=== PATIENT | female | born 1960 | race Caucasian/White ===

== ENCOUNTER 2024-03-12 12:41 | Outpatient (CLI) | payer OTHER, SELFPAY ==
--- NOTE | 2024-03-12 12:45 | ECG_ITS ---
Test Date: 2024-03-12 13:12:03 Measurements Intervals [place] Rate: 62 P: 5 AK: 146 QRS: -14 QRSD: 94 T: 13 QT: 395 QTc: 401 Interpretive Statements SINUS RHYTHM DELAYED PRECORDIAL R/S TRANSITION BASELINE ARTIFACT- I, II, III, AVR, AVL, AVF, V1-V6 BORDERLINE ECG No previous ECG available for comparison Electronically Signed On 03-12-2024 13:48:29 SENIOR NUCLEAR MEDICINE TECHNOLOGIST by Garrett Rios D.O.
== END 2024-03-12 12:42 | disposition home or self-care (01) ==
PROVIDERS: PCP Nurse Practitioner Family; Visit Provider Orthopaedic Surgery
DX: I10 Essential (primary) hypertension (principal); Z01.818 Encounter for other preprocedural examination; R94.31 Abnormal electrocardiogram [ECG] [EKG]
CPT/HCPCS: 93005

== ENCOUNTER 2024-03-18 00:56 | Day surgery (SDC) | payer OTHER, SELFPAY ==
[2024-03-11 10:03] VITALS: BMI 31.6
--- NOTE | 2024-03-11 10:15 | PC.NURSE ---
Report to the Outpatient Waiting Room, entrance under the green pavilion located off [facility], at time _0600_ on date _[id number]_. Planned Procedure Time: _0730_.? Time changes happen often and if your time is changed the preop area will call you the afternoon before. - You and your visitor will be asked to self-screen and do not enter if you have any COVID symptoms. Please call surgeon if you need to reschedule. - A mask is optional within the hospital at this time. Patients may have clear liquids (water, carbonated beverages, clear teas, apple juice) until 3 hours prior to surgery with a maximum of 20 ounces. - No food from midnight until time of surgery and no smoking Take only the following medications with a SIP of water on the morning of surgery: ____Azelastinen, Propanolol and Primidone DO NOT STOP ANY OF YOUR OTHER PRESCRIPTION MEDICATIONS PRIOR TO SURGERY EXCEPT THE FOLLOWING Medications to discontinue per physician ___None____ Please no make-up, nail khmer, hairspray, perfume, deodorant, or body powder the day of surgery.? No jewelry (including any body piercings) or valuables the day of surgery, leave them at home.? Please take a shower or bath the night before, or the morning of, surgery with an antibacterial soap.? Wear comfortable, loose fitting clothing.? - Jewelry must be removed prior to entering the operating room.? Rings and piercings that are not removed may be cut off. - The hospital will not accept responsibility for valuables.? - Please leave all valuables, including medications, at home the day of surgery. If you are going home after surgery, a licensed sprinkling truck driver must drive you home.? - NO public transportation without another adult if you receive anesthesia. - We recommend that an adult stay with you for 24 hours following discharge. - We also recommend that you do not drive, make important decision, drink alcoholic beverages, or take any drugs that were not prescribed by your health care provider for at least 24 hours after your discharge time. Follow any additional instructions given to you from your surgeon. Telephone instructions given to __Lety__and asked if any additional questions and then verbalized understanding. Patient advised to call surgeon office or pre surgery nurse liaison [phone] if any additional questions.
[2024-03-18] VITALS (7 sets, daily range): BP systolic 124–143; BP diastolic 61–79; PULSE 55–64; RESP 14–20; TEMP 36.3–36.6; O2SAT 96–100
--- NOTE | ~2024-03-18 | XR_ITS ---
EXAMINATION: XR surgery orthopedic DATE: 03/18/2024 08:36 INDICATION: Right second costovertebral reconstruction hammertoe repair. TECHNIQUE: 4 fluoroscopic images of the right second toe were obtained during procedure performed by Dr. Campoverde. Radiologist was not present for the imaging or procedure. The amount of fluoroscopy time used during this procedure was 0.2 minutes. COMPARISON: None. FINDINGS: Right second hammertoe correction with second proximal interphalangeal joint arthrodesis. A fixation device has been placed across the proximal interphalangeal joint over an axially directed K wire whic h extends from the tuft of the distal phalanx to the mid diaphysis of the second metatarsal. No fract ure. Small amount of postoperative gas and mild widening of the second metatarsophalangeal joint spac e. Mild osteoarthritis at a few of the tarsal metatarsal and distal interphalangeal joints. IMPRESSION: 1. Fluoroscopy utilized during reported right second hammertoe correction with instrumented second pr oximal interphalangeal joint arthrodesis. Reviewed, dictated and finalized at location B. K PROCESSING CLERK IMPRESSION: 1. Fluoroscopy utilized during reported right second hammertoe correction with instrumented second proximal interphalangeal joint arthrodesis.
[2024-03-18] MEDS: ACETAMINOPHEN 500 MG TABLET 1000 MG PO (07:00)
--- NOTE | 2024-03-18 07:00 | WPDHPUPDATE1 ---
History and Physical Update Update Date/Time: 03/18/24 07:00 History and Physical has been reviewed, including an updated exam of the patient. There are NO changes in the patient's condition. Risks, benefits, and alternatives have been discussed and questions answered. Patient agrees to proceed with procedure.
[2024-03-18] MEDS: LACTATED RINGERS 1,000 ML 30 ML IV CONT (07:05)
[2024-03-18] MEDS: KETOROLAC 15 MG/ML VIAL (*BKC) IV PUSH (07:06)
--- NOTE | 2024-03-18 07:23 | P.PNAN_ITS ---
Anes - Initial Pre Proc Eval Procedure: Operation Date: 03/18/24 07:30 Proposed Procedures p Right Foot Second Crossover Toe Reconstruction and Hammer Toe Repair - Farhat Campoverde MD Date/Time: 03/18/24 07:23 Surgeon: Farhat Campoverde MD Pre Op Diagnosis: right 2nd crossover toe, hammer toe Patient Data Age: 64 Gender: F Height: 1.65 m Weight: 86.4 kg Allergies Allergy/AdvReac Type Severity Reaction Status Date / Time morphine Allergy Unknown Flushing Verified 03/18/24 06:54 Home Medications Medication Instructions Recorded Confirmed Type azelastine 137 mcg (0.1 %) nasal 137 mcg (0.137 mL) intranasal Q12H 02/11/23 03/18/24 Rx spray #30 mL hydrochlorothiazide 12.5 mg capsule 12.5 mg PO DAILY 02/11/23 03/18/24 History lisinopril 20 mg tablet 20 mg PO DAILY 02/11/23 03/18/24 History propranolol 40 mg tablet 20 mg PO Q12H 02/11/23 03/18/24 History alprazolam 0.5 mg tablet 0.25 mg PO HS PRN Insomnia 03/11/24 03/18/24 History primidone 50 mg tablet 100 mg PO BID 03/11/24 03/18/24 History sertraline 50 mg tablet 50 mg PO HS 03/11/24 03/18/24 History Patient hx anesthesia problems: none Family hx anesthesia problems: none Results Review: All pre-operative results and documents have been reviewed as part of the pre- operative evaluation. 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 Surgical History Surgical History Corneal transplant status Family History Family History Mother Hypertension Social History Social History Social History: Caffeine- none Years smoked: 12 Smoking status: Former smoker Tobacco type: cigarettes Smoking end date: 03/11/90 Alcohol intake: current Alcohol use details: occasionally Substance use: never Substance use type: does not use Lack of Transportation: No Lack of Food: Never True Current Housing: I Have Housing Concerned About Future Housing: No Difficulty Paying Gas/Electric Bills: No Difficulty Paying for Meds: No Currently Unemployed: No Education: Master's Degree or Higher Difficulty w/ Childcare or Family Care: No Living arrangements: alone Spiritual care concerns: No Anes - Eval Final PreProcedure Day of Procedure 03/18/24 07:23 Patient weight: obese Heart: regular rate and rhythm Lungs: clear to auscultation Airway: Mallampati scale class II Neurological: alert and oriented Last oral intake: >/= 8 hours ASA classification: II Emergent: no Anesthetic plan: proceed Anesthesia type and monitoring: general LMA and standard monitoring Results Review: All pre-operative results and documents have been reviewed as part of the pre- operative evaluation. Informed Consent: The patient's anesthetic plan and its attendant risks and benefits were discussed with the patient/family/POA. Questions were solicited and answers provided to the satisfaction of the patient/family/POA.
--- NOTE | 2024-03-18 07:24 | P.OP_ITS ---
Procedure Note - Detailed Date of Procedure 03/18/24 Pre-op Diagnosis right 2nd crossover toe, hammer toe Post-op Diagnosis Same Procedure Performed Right 2nd hammertoe repair with proximal interphalangeal arthrodesis, reconstruction crossover toe at metatarsophalangeal joint. 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 Pain with activity, shoe wear and weight-bearing. Deformity worsening with time. Presents for operative treatment. Findings Plantar plate intact. Dorsal elevation at the MTP joint and flexion at PIP joint. Description of Procedure Patient identified in the preoperative holding. Informed consent given. Operative extremity marked. Patient received intravenous antibiotics. Patient brought to the operating room where underwent general anesthetic by anesthesia team. Positioned supine on operating room table. Time-out performed confirming the patient, site of the surgery and the plan. Right foot and ankle exsanguinated and calf tourniquet inflated to 220 mmHg. dorsal longitudinal incision made over the 2nd metatarsophalangeal joint after local anesthetic with 0.5% Marcaine plain. Retractors placed and dorsal capsulotomy performed. Capsule released off the medial lateral aspect metatarsal head and elevator used to release the plantar aspect. The plantar plate was inspected and noted to be intact without tear. Rongeur used to remove the plantar condyle from the 2nd metatarsal head. Alignment was then checked and dorsal elevation and medial deviation still noted at the metatarsophalangeal joint. Extensor tendon was then freed up from the sagittal bands. The extensor brevis was released at the proximal extent of the wound and transferred to the medial side with 3-0 Monocryl interrupted suture. Alignment was then checked and noted to be neutral. Wound irrigated the dorsal capsule closed with 3-0 Monocryl interrupted suture and skin repaired with 4-0 nylon running suture. The hammertoe was then addressed. Dorsal longitudinal incision made over the 2nd toe proximal interphalangeal joint with 15 blade knife. Hemostasis controlled electrocautery. Dorsal capsulotomy performed including the extensor tendon. Medial and lateral collateral ligaments released off of the proximal phalanx. Distal and of the proximal phalanx and the proximal end of the middle phalanx resected with bone cutter and rongeur. Any prominent bone or spurring removed with rongeur. Joint thoroughly irrigated with antibiotic solution. Joint then prepared, reduced and fixed with internal joint arthrodesis fixation device. Alignment checked with image intensification. 1.1 mm K-wire then advanced retrograde fashion through the hammertoe fixation device and across the metatarsophalangeal joint to hold alignment. This was verified with image intensification. Wound thoroughly irrigated. Capsule closed with 3 O Monocryl interrupted suture. Skin repaired with 4 O nylon interrupted suture. Tourniquet released and good capillary refill noted in toe. Sterile dressing applied. Patient then awoke from anesthesia, extubated and taken to recovery room stable condition. All sponge needle and instrument counts correct at the end of the case. Implants Arthrex 14 mm hammertoe implant and 1.1 mm K-wire. Estimated Blood Loss 5 Tourniquet Time Total Tourniquet Time: 50 Drains No Packing No Pathology None sent Complications None Condition Stable Disposition PACU [facility] Billing Surgery - Charge Forward: Surgery Billing ([id number], [id number])
[2024-03-18] MEDS: ceFAZolin 2 GM/D5W 50 ML 2 GM/50 ML BAG IVPB (07:30)
[2024-03-18] MEDS: BUPivacaine HCL 0.5% 10 ML AMP 20 ML INFILTRATE (08:03)
== END 2024-03-18 10:30 | disposition home or self-care (01) ==
PROVIDERS: PCP Nurse Practitioner Family; Visit Provider Orthopaedic Surgery
PROC: (CPT 28285; principal; 2024-03-18 07:30)
DX: M20.5X1 Other deformities of toe(s) (acquired), right foot (principal); M20.41 Other hammer toe(s) (acquired), right foot; Z87.891 Personal history of nicotine dependence; E66.9 Obesity, unspecified; Z68.33 Body mass index [BMI] 33.0-33.9, adult
CPT/HCPCS: 28285; 99199; A9270; C1713; J0690; J1100; J1885; J2003; J2250; J2405; J2704; J3010; J7120

== ENCOUNTER 2024-03-26 20:48 | Emergency (ER) | payer OTHER, SELFPAY ==
[2024-03-26 20:50] VITALS: BP 168/79; PULSE 78; RESP 16; TEMP 36.6; O2SAT 100
[2024-03-27 00:26] VITALS: BP 139/60; PULSE 62; RESP 16; TEMP 36.8; O2SAT 100
[2024-03-27 00:39] LABS: Anion Gap 3 mmol/L (4-12); Blood Urea Nitrogen 28 mg/dL (7-17); Calcium 9.8 mg/dL (8.4-10.2); Carbon Dioxide 34 mmol/L (22-30); Chloride 97 mmol/L (98-107); Estimated CRCL calculation 75 ml/min; Estimated Glomerular Filt Rate > 60; Glucose 113 mg/dL (65-110); Sodium 134 mmol/L (137-145)
[2024-03-27 00:46] LABS: Basophils Percent Auto 0.5 % (0.2-1.2); Eosinophils Absolute Auto 0.2 K/mm3 (0-0.3); Eosinophils Percent Auto 1.9 % (0-4.4); Hematocrit 41.1 % (37.0-47.0); Immature Granulocyte Absolute 0.03 K/mm3 (0.00-0.031); Immature Granulocyte Percent A 0.4 % (0-0.5); Lymphocytes Absolute Auto 1.81 K/mm3 (0.9-3.2); Lymphocytes Percent Auto 21.9 % (18.3-44.2); Mean Corpuscular HGB Conc 34.1 g/dl (32-36); Mean Corpuscular Volume 93.8 fl (80-100); Mean Platelet Volume 10.8 fl (7.4-10.4); Monocytes Percent Auto 11.5 % (2.6-8.5); Neutrophils Absolute Auto 5.3 K/mm3 (1.3-6.7); Neutrophils Percent Auto 63.8 % (45.5-73.1); Platelet Count Result 232 k/mm3 (150-375); Red Blood Count 4.38 M/mm3 (4.2-5.4); Red Cell Distribution Width 13.4 % (11.5-14.5); White Blood Count 8.3 K/mm3 (4.5-10.0)
[2024-03-27 01:07] LABS: INR 0.9
[2024-03-27 01:08] LABS: Partial Thromboplastin Time 28.2 Seconds (22.3-36.8)
[2024-03-27 01:30] LABS: D Dimer 5.74 ug/mL (<0.48)
[2024-03-27 01:46] VITALS: BP 171/99; PULSE 76; RESP 16; TEMP 36.6; O2SAT 99
--- NOTE | 2024-03-27 02:21 | ED.EXTPRO ---
HPI - Extremity Problem General Chief complaint: Extremity Problem,Nontraumatic Stated complaint: R calf pain Time Seen by Provider: 03/27/24 00:11 History of Present Illness HPI Narrative: 64-year-old female presenting to the emergency department for evaluation of right lower extremity swelling. She recently had hammertoe surgery of her right lower extremity on the of this month over a days prior. She states that postoperatively she has had pain under control but today she noticed that she had some cramping in her right lower extremity that was painful and localized behind the knee and in the superior calf. She does that her right lower extremity is more swollen than her left and was not the swollen postoperatively. She states that her jeans felt tight on her right lower extremity compared to the left. She was otherwise in her normal state of health, denies any chest pain shortness a breath. She was sent in by her primary care provider for concerns of a DVT. Has no history of DVT has not any blood thinner medications at this time. No injuries or trauma. Follow-up appointment with her orthopedic surgeon on Friday this week. Related Data Home Medications Medication Instructions Recorded Confirmed hydrochlorothiazide 12.5 mg capsule 12.5 mg PO DAILY 02/11/23 03/18/24 lisinopril 20 mg tablet 20 mg PO DAILY 02/11/23 03/18/24 propranolol 40 mg tablet 20 mg PO Q12H 02/11/23 03/18/24 alprazolam 0.5 mg tablet 0.25 mg PO HS PRN Insomnia 03/11/24 03/18/24 primidone 50 mg tablet 100 mg PO BID 03/11/24 03/18/24 sertraline 50 mg tablet 50 mg PO HS 03/11/24 03/18/24 Allergies Allergy/AdvReac Type Severity Reaction Status Date / Time morphine Allergy Unknown Flushing Verified 03/26/24 20:49 Review of Systems Review of Systems: As reviewed above in HPI [facility] Past Medical History Medical History Cataract Cholecystitis [place] of toe Fracture of toe of left foot Hammertoe of right foot Hammertoe of second toe of right foot 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 Surgical History Surgical History Corneal transplant status Family History Family History Mother Hypertension Social History Social History Social History: Caffeine- none Years smoked: 12 Smoking status: Former smoker Tobacco type: cigarettes Smoking end date: 03/11/90 Alcohol intake: current Alcohol use details: occasionally Substance use: never Substance use type: does not use Lack of Transportation: No Lack of Food: Never True Current Housing: I Have Housing Concerned About Future Housing: No Difficulty Paying Gas/Electric Bills: No Difficulty Paying for Meds: No Currently Unemployed: No Education: Master's Degree or Higher Difficulty w/ Childcare or Family Care: No Living arrangements: alone Spiritual care concerns: No Exam Narrative: GENERAL: [Well-appearing, well-nourished, and in no acute distress.] HEAD: [Normocephalic, atraumatic.] EYES: [PERRLA and EOMI.] ENT: Nares clear, no rhinorrhea or epistaxis. Mucous membranes moist. NECK: Supple. CHEST: [Clear to auscultation. No respiratory distress.] HEART: [Regular rate and rhythm]. No murmur heard. [Normal peripheral pulses.] ABDOMEN: [Soft, nondistended], [nontender], [No rigidity or guarding] EXTREMITIES: the right lower extremity is slightly more swollen compared to the left lower extremity. There is tenderness in the posterior calf, no tenderness in the she had or overlying skin changes. mild edema around the right ankle. surgical site appears clean, dry, intact with sutures in place, no wound dehiscence, erythema or irritation, no drainage. Able to plantar and dorsiflex. No sensory changes. SKIN: Warm, dry, no rash. NEURO: [No focal deficits]. Alert and oriented [x3.] PSYCH: [Normal mood and affect.] Course Vital Signs Vital signs: Vital Signs Temperature 36.6 C 03/26/24 20:50 Pulse Rate 78 03/26/24 20:50 Respiratory Rate 16 03/26/24 20:50 Blood Pressure 168/79 H 03/26/24 20:50 Pulse Oximetry 100 03/26/24 20:50 Temperature 36.6 C 03/27/24 01:46 Pulse Rate 76 03/27/24 01:46 Respiratory Rate 16 03/27/24 01:46 Blood Pressure 171/99 H 03/27/24 01:46 Pulse Oximetry 99 03/27/24 01:46 MDM - Extremity (Nontraumatic) MDM Narrative Medical decision making narrative: 64-year-old female that is postop day 8 from a hammertoe surgery of her right lower extremity. Today she noticed some pain and swelling her right lower extremity compared to the left which was not present postoperatively. She describes the pain localized to the posterior calf and behind the knee and describes as aching cramping sensation. Was sent in for a DVT study. Presently we do not have ultrasonography tax or anybody available to perform a DVT Doppler study. Laboratory studies were obtained including a dimer CBC, BMP. differential diagnosis includes right lower extremity DVT, superficial venous thrombosis, dependent edema from surgery and lack of ambulation, postsurgical changes. Laboratories studies revealed no leukocytosis or anemia. Platelet count 232. Normal electrolytes, normal renal function panel. Normal PT and PTT but D-dimer markedly elevated 5.74, above expected postoperatively and consistent with potential DVT. Given her clinical diagnosis of a DVT at this time needing confirmatory ultrasonography I believe the best course of action is to treat her empirically with a dose of 1 milligram/kilogram of Lovenox and have the patient return at 7:00 a.m. for a DVT Doppler study here at the hospital in the radiology suite. Patient was agreeable to this plan of care and is hemodynamically stable. She was given a dose of Lovenox, outpatient DVT study prescription was ordered and radiology suite has made arrangements for a 7:00 a.m. times clot. Patient was instructed to return at 7:00 a.m. for her Doppler study and await result here and if it is positive she will be sent to the ER for repeat evaluation and to be started on anticoagulation. patient verbalized understanding of all these instructions. She is stable for discharge at this time and DVT ultrasound script sent. Lab Data 03/27/24 00:24 03/27/24 00:24 Labs: Lab Results 03/27/24 Range/Units 00:24 WBC 8.3 (4.5-10.0) K/mm3 RBC 4.38 (4.2-5.4) M/mm3 Hgb 14.0 (12.0-15.0) g/dL Hct 41.1 (37.0-47.0) % MCV 93.8 (80-100) fl MCH 32.0 (26-34) pg MCHC 34.1 (32-36) g/dl RDW 13.4 (11.5-14.5) % Plt Count 232 (150-375) k/mm3 MPV 10.8 H (7.4-10.4) fl Immature Gran % (Auto) 0.4 (0-0.5) % Neut % (Auto) 63.8 (45.5-73.1) % Lymph % (Auto) 21.9 (18.3-44.2) % [place] % (Auto) 11.5 H (2.6-8.5) % Eos % (Auto) 1.9 (0-4.4) % Baso % (Auto) 0.5 (0.2-1.2) % Lymph # (Auto) 1.81 (0.9-3.2) K/mm3 [place] # (Auto) 1.0 H (0.1-0.6) K/mm3 Eos # (Auto) 0.2 (0-0.3) K/mm3 Baso # (Auto) 0.0 (0.0-0.1) K/mm3 Abs Immat Gran (auto) 0.03 (0.00-0.031) K/mm3 Absolute Neuts (auto) 5.3 (1.3-6.7) K/mm3 Absolute Nucleated RBC 0.000 (0.0-0.012) K/mm3 Nucleated RBC % 0.0 (0.0-0.2) % PT 13.0 (11.1-14.7) Seconds INR 0.9 APTT 28.2 (22.3-36.8) Seconds D-Dimer 5.74 H (<0.48) ug/mL Sodium 134 L (137-145) mmol/L Potassium 4.0 (3.4-5.0) mmol/L Chloride 97 L (98-107) mmol/L Carbon Dioxide 34 H (22-30) mmol/L Anion Gap 3 L (4-12) mmol/L BUN 28 H (7-17) mg/dL Creatinine 0.70 (0.7-1.0) mg/dL Estim Creat Clear Calc 75 ml/min Estimated GFR > 60 (59 - ) Glucose 113 H (65-110) mg/dL Calcium 9.8 (8.4-10.2) mg/dL Discharge Plan Discharge Clinical Impression: Localized swelling of right lower extremity, Hammertoe of second toe of right foot Patient Disposition: Home, Self-Care Condition: Stable Instructions: Antibiotic Form, Deep Vein Thrombosis (DC), Leg Edema (ED) Additional Instructions: with your right lower extremity swelling and elevated D-dimer level we are concerned that there could be a blood clot in your right leg. We have given you dose of Lovenox which is a blood thinner medication to start the process while we get an Ultrasound since we do not have available attacks at this time. Please return to the [facility] today at 7 in the morning free of scheduled Doppler ultrasound. They will tell you the results and if it was positive they will refer you back to the emergency department to be started on medications. Return at any point to the ER if your develop any interval chest pain, difficulty breathing, worsening leg pain or swelling, or any other concerns before your scheduled appointment this morning. Prescriptions: No Action hydrochlorothiazide 12.5 mg capsule 12.5 mg PO DAILY propranolol 40 mg tablet 20 mg PO Q12H lisinopril 20 mg tablet 20 mg PO DAILY azelastine 137 mcg (0.1 %) aerosol,spray 137 mcg intranasal Q12H Qty: 30 2RF Rx Instructions: administer into each nostril primidone 50 mg tablet 100 mg PO BID sertraline 50 mg tablet 50 mg PO HS alprazolam 0.5 mg tablet 0.25 mg PO HS PRN (Reason: Insomnia) hydrocodone-acetaminophen 5-325 mg tablet 1 tablet PO Q6H PRN (Reason: pain) Qty: 30 0RF polyethylene glycol 3350 17 gram powder in packet 17 g PO DAILY PRN (Reason: constipation) Qty: 14 1RF sennosides-docusate sodium [Senna with Docusate Sodium] 8.6-50 mg tablet 1 tab-cap PO BID PRN (Reason: constipation) Qty: 20 1RF ondansetron 8 mg tablet,disintegrating 8 mg PO Q8H PRN (Reason: nausea and vomiting) Qty: 10 1RF Other Ambulatory Orders: US venous doppler LE RT (Routine) Timeframe: [id number] Location: Determined by Patient Ordered By: Alexander Mullen Follow-up/Referrals: Aroldo,Glenis Valle, MEDICAL SCIENCE LIAISON [Primary Care Provider] - Time of Disposition: 02:30
[2024-03-27] MEDS: ENOXAPARIN 100 MG/ML SYRINGE 84 MG SUB-Q (02:25)
== END 2024-03-27 02:38 | disposition home or self-care (01) ==
PROVIDERS: Emergency Provider Student in an Organized Health Care Education/Training Program; PCP Nurse Practitioner Family
DX: R22.41 Localized swelling, mass and lump, right lower limb (principal); M20.41 Other hammer toe(s) (acquired), right foot; Z87.891 Personal history of nicotine dependence
CPT/HCPCS: 36415; 80048; 85025; 85380; 85610; 85730; 96372; 99283; J1650

== ENCOUNTER 2024-03-27 07:06 | Outpatient (CLI) | payer OTHER, SELFPAY ==
--- NOTE | ~2024-03-27 | US_ITS ---
EXAMINATION: US venous doppler LE RT DATE: 03/27/2024 07:37 INDICATION: Right lower limb swelling TECHNIQUE: Grayscale ultrasound images without and with compression and Doppler ultrasound images of the right lower extremity veins were obtained. COMPARISON: None. FINDINGS: There is noncompressible occlusive deep venous thrombosis in the paired peroneal veins at the right c chung. The visualized portions of right common femoral vein, profunda (deep) femoral vein, femoral vein , popliteal vein, peroneal trunk, posterior tibial veins, gastrocnemius vein and greater saphenous ve in outflow are patent. IMPRESSION: 1. Occlusive appearing deep venous thrombosis in the paired peroneal veins at the right calf. Reviewed, dictated and finalized at location A. [employer] [employer]
== END 2024-03-27 07:07 | disposition home or self-care (01) ==
PROVIDERS: PCP Nurse Practitioner Family; Visit Provider Student in an Organized Health Care Education/Training Program
DX: I82.451 Acute embolism and thrombosis of right peroneal vein (principal); R22.41 Localized swelling, mass and lump, right lower limb
CPT/HCPCS: 93971

== ENCOUNTER 2024-03-27 08:04 | Emergency (ER) | payer OTHER, SELFPAY ==
[2024-03-27 08:11] VITALS: BP 131/62; PULSE 59; RESP 16; TEMP 36.4; O2SAT 100
--- NOTE | 2024-03-27 08:30 | ED_ITS ---
HPI - General Adult General Chief complaint: Extremity Problem,Nontraumatic Stated complaint: DVT right leg, sent from radiology Time Seen by Provider: 03/27/24 08:10 Related Data Home Medications Medication Instructions Recorded Confirmed hydrochlorothiazide 12.5 mg capsule 12.5 mg PO DAILY 02/11/23 03/18/24 lisinopril 20 mg tablet 20 mg PO DAILY 02/11/23 03/18/24 propranolol 40 mg tablet 20 mg PO Q12H 02/11/23 03/18/24 alprazolam 0.5 mg tablet 0.25 mg PO HS PRN Insomnia 03/11/24 03/18/24 primidone 50 mg tablet 100 mg PO BID 03/11/24 03/18/24 sertraline 50 mg tablet 50 mg PO HS 03/11/24 03/18/24 Allergies Allergy/AdvReac Type Severity Reaction Status Date / Time morphine Allergy Unknown Flushing Verified 03/27/24 08:14 PMFSH Past Medical History Medical History Cataract Cholecystitis [place] of toe Fracture of toe of left foot [place] of right foot [place] of second toe of right foot 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 Surgical History Surgical History Corneal transplant status Family History Family History Mother Hypertension Social History Social History Social History: Caffeine- none Years smoked: 12 Smoking status: Former smoker Tobacco type: cigarettes Smoking end date: 03/11/90 Alcohol intake: current Alcohol use details: occasionally Substance use: never Substance use type: does not use Lack of Transportation: No Lack of Food: Never True Current Housing: I Have Housing Concerned About Future Housing: No Difficulty Paying Gas/Electric Bills: No Difficulty Paying for Meds: No Currently Unemployed: No Education: Master's Degree or Higher Difficulty w/ Childcare or Family Care: No Living arrangements: alone Spiritual care concerns: No Course Course Emergency Course: Discussed ultrasound results which show DVT. Discussed that oral blood thinner such as Eliquis /Xarelto /warfarin may interact with her primidone and be less therapeutic so close follow-up is necessary. Vital Signs Vital signs: Vital Signs Temperature 97.6 F 03/27/24 08:11 Pulse Rate 59 L 03/27/24 08:11 Respiratory Rate 16 03/27/24 08:11 Blood Pressure 131/62 03/27/24 08:11 Pulse Oximetry 100 03/27/24 08:11 Temperature 97.6 F 03/27/24 08:11 Pulse Rate 59 L 03/27/24 08:11 Respiratory Rate 16 03/27/24 08:11 Blood Pressure 131/62 03/27/24 08:11 Pulse Oximetry 100 03/27/24 08:11 Medical Decision Making Vital Signs Vital Signs: Vital Signs Temperature 97.6 F 03/27/24 08:11 Pulse Rate 59 L 03/27/24 08:11 Respiratory Rate 16 03/27/24 08:11 Blood Pressure 131/62 03/27/24 08:11 Pulse Oximetry 100 03/27/24 08:11 Temperature 97.6 F 03/27/24 08:11 Pulse Rate 59 L 03/27/24 08:11 Respiratory Rate 16 03/27/24 08:11 Blood Pressure 131/62 03/27/24 08:11 Pulse Oximetry 100 03/27/24 08:11 Discharge Plan Discharge Clinical Impression: DVT (deep venous thrombosis) Patient Disposition: Home, Self-Care Condition: Stable Instructions: Deep Vein Thrombosis (ED) Additional Instructions: Your being started on a blood thinner. Return the ER if you have chest pain with shortness of breath, you lose consciousness, you strike her head, you have increased pain/swelling in your leg, or you have additional concerns. Follow-up with your primary care doctor for further treatment and evaluation. They will also need to extend your blood thinner treatment. Prescriptions: New Eliquis DVT-PE Treat 30D Start 5 mg (74 tabs) tablets,dose pack See Rx Instructions .ROUTE .COMPLEX Qty: 74 0RF Rx Instructions: orally per package directions No Action hydrochlorothiazide 12.5 mg capsule 12.5 mg PO DAILY propranolol 40 mg tablet 20 mg PO Q12H lisinopril 20 mg tablet 20 mg PO DAILY azelastine 137 mcg (0.1 %) aerosol,spray 137 mcg intranasal Q12H Qty: 30 2RF Rx Instructions: administer into each nostril primidone 50 mg tablet 100 mg PO BID sertraline 50 mg tablet 50 mg PO HS alprazolam 0.5 mg tablet 0.25 mg PO HS PRN (Reason: Insomnia) hydrocodone-acetaminophen 5-325 mg tablet 1 tablet PO Q6H PRN (Reason: pain) Qty: 30 0RF polyethylene glycol 3350 17 gram powder in packet 17 g PO DAILY PRN (Reason: constipation) Qty: 14 1RF sennosides-docusate sodium [Senna with Docusate Sodium] 8.6-50 mg tablet 1 tab-cap PO BID PRN (Reason: constipation) Qty: 20 1RF ondansetron 8 mg tablet,disintegrating 8 mg PO Q8H PRN (Reason: nausea and vomiting) Qty: 10 1RF Follow-up/Referrals: Aroldo,Glenis Valle, HOSPITAL LABORATORY TECHNICIAN [Primary Care Provider] - 1 Week
== END 2024-03-27 09:02 | disposition home or self-care (01) ==
PROVIDERS: Emergency Provider Emergency Medicine; PCP Nurse Practitioner Family
DX: T81.72XA Complication of vein following a procedure, not elsewhere classified, initial encounter (principal); I82.401 Acute embolism and thrombosis of unspecified deep veins of right lower extremity; H26.9 Unspecified cataract; Z94.7 Corneal transplant status; Z87.891 Personal history of nicotine dependence; Z79.899 Other long term (current) drug therapy
CPT/HCPCS: 99283